=== PATIENT | female | born 1940 | race Caucasian/White ===

== ENCOUNTER 2021-08-24 08:14 | Outpatient (CLI) | payer MEDICARE | END 2021-08-24 08:15 | disposition home or self-care (01) | LOC: CSHWCC 08:14 | PROVIDERS: ATTEND Nurse Practitioner Family | DX: L98.499 Non-pressure chronic ulcer of skin of other sites with unspecified severity (principal) | CPT/HCPCS: 11042; 97139; G0463; 88304; 88305; 99203 ==

== ENCOUNTER 2022-04-10 11:57 | Inpatient (IN) | payer MEDICARE ==
[2022-04-10 13:13] LABS: #Monocytes 0.4 10x3/uL (0.0-1.1); #Neutrophils 3.7 10x3/uL (1.5-8.4); %Basophils 0.4 % (0.0-2.0); %Eosinophils 0.6 % (0.0-6.0); %Lymphocytes 23.7 % (18.0-47.0); %Monocytes 7.1 % (0.0-10.0); Hemoglobin 11.3 g/dL (12.0-15.5); Mean Corpuscular HGB CONC 30.9 g/dL (32.0-36.0); Mean Corpuscular Hemoglobin 31.7 pg (27.0-33.0); Mean Corpuscular Volume 102.8 fl (81.6-98.3); Mean Platelet Volume 10.9 fl (7.4-10.4); Platelet Count 161 10x3/uL (150-450); RBC Distribution Width 11.6 % (11.5-14.5); Red Blood Cell (RBC) Count 3.56 10x6/uL (3.90-5.03); White Blood Cell (WBC) Count 5.4 10x3/uL (3.5-10.5)
[2022-04-10 13:28] LABS: ALT (SGPT) 8 U/L (8-55); AST (SGOT) 15 U/L (5-34); Alkaline Phosphatase 82 U/L (40-110); BUN (Urea Nitrogen) 12 mg/dL (9.8-20.1); Bilirubin, Total 0.3 mg/dL (0.2-1.2); Calc. Creatinine Clearance 0 mL/min (70-130); Calcium 10.2 mg/dL (7.8-10.44); Estimated GFR 89; Globulin 2.7 g/dL (2.4-3.5); Glucose 141 mg/dL (83-110); Magnesium 1.9 mg/dL (1.6-2.6); Protein, Total 6.7 g/dL (5.8-8.1)
[2022-04-10 13:35] LABS: Anion Gap 15 mmol/L (10-20); Carbon Dioxide 38 mmol/L (23-31); Chloride 94 mmol/L (98-107); Potassium 4.5 mmol/L (3.5-5.1); Sodium 142 mmol/L (136-145)
[2022-04-10] MEDS ORDERED: HYDROcodone/Acetaminophen 5/325 mg Tablet PO PRN (16:09)
[2022-04-10 18:18] VITALS: BMI 24.3
[2022-04-10 22:01] LABS: Bilirubin Neg (Negative); Blood, Urine Negative (Negative); Clarity Clear (Clear); Glucose, Urine (Dipstick) Normal (Negative); Ketone, Urine Negative (Negative); Leukocyte Negative (Negative); Nitrite Negative (Negative); Protein, Urine (Dipstick) Negative (Neg-Trace)
[2022-04-10 22:07] LABS: Bacteria/HPF None Seen HPF (None Seen); RBC/HPF 0-3 HPF (0-3); Squamous Epithelial 0-3 HPF (0-3); WBC/HPF 0-3 HPF (0-3)
[2022-04-10] MEDS ORDERED: Zonisamide 100 MG CAP PO SCH (22:15)
[2022-04-11 04:43] LABS: #Eosinphils 0.1 10x3/uL (0.0-0.5); #Monocytes 0.7 10x3/uL (0.0-1.1); #Neutrophils 5.7 10x3/uL (1.5-8.4); %Basophils 0.2 % (0.0-2.0); %Eosinophils 0.9 % (0.0-6.0); %Lymphocytes 19.2 % (18.0-47.0); %Monocytes 9.1 % (0.0-10.0); %Neutrophils 70.4 % (40.0-75.0); Hemoglobin 10.4 g/dL (12.0-15.5); Mean Corpuscular HGB CONC 30.7 g/dL (32.0-36.0); Mean Corpuscular Hemoglobin 31.6 pg (27.0-33.0); Mean Platelet Volume 10.8 fl (7.4-10.4); Platelet Count 151 10x3/uL (150-450); RBC Distribution Width 11.6 % (11.5-14.5); Red Blood Cell (RBC) Count 3.29 10x6/uL (3.90-5.03); White Blood Cell (WBC) Count 8.1 10x3/uL (3.5-10.5)
[2022-04-11 05:14] LABS: Anion Gap 17 mmol/L (10-20); Carbon Dioxide 36 mmol/L (23-31); Chloride 93 mmol/L (98-107); Potassium 4.4 mmol/L (3.5-5.1); Sodium 142 mmol/L (136-145)
[2022-04-11 05:17] LABS: ALT (SGPT) Less than 6 U/L (8-55); AST (SGOT) 14 U/L (5-34); Albumin 3.6 g/dL (3.4-4.8); Alkaline Phosphatase 78 U/L (40-110); BUN (Urea Nitrogen) 10 mg/dL (9.8-20.1); Bilirubin, Total 0.6 mg/dL (0.2-1.2); Calc. Creatinine Clearance 69 mL/min (70-130); Calcium 9.5 mg/dL (7.8-10.44); Estimated GFR 90; Globulin 2.4 g/dL (2.4-3.5); Glucose 121 mg/dL (83-110)
[2022-04-11] MEDS ORDERED: Ipratropium Bromide 2.5 ml Neb NEB PRN (08:50)
[2022-04-11] MEDS ORDERED: Enoxaparin Sodium 30 MG/0.3 ML SYRINGE ONE (08:54)
[2022-04-11] MEDS ORDERED: FLU VACC QS2022-23(65YR UP)/PF 240 MCG/0.7 ML SYRINGE IM ONE (09:00)
[2022-04-11] MEDS: Ferrous Sulfate 325 MG TAB PO SCH (09:14)
[2022-04-11] MEDS: Potassium Chloride 20 MEQ TAB PO SCH (09:14)
[2022-04-11] MEDS: Aspirin Chewable 81 MG TAB PO SCH (09:14)
[2022-04-11] MEDS: Cholecalciferol 1,000 UNITS (25 MCG) TAB PO SCH (09:14)
[2022-04-11] MEDS: Enoxaparin Sodium 30 MG/0.3 ML SYRINGE SC SCH (09:15)
[2022-04-11] MEDS: Torsemide 20 MG TAB PO SCH (10:33)
[2022-04-11] MEDS ORDERED: Communication Order-Pharmacy FS SCH (13:30)
[2022-04-11] MEDS ORDERED: TETANUS, DIPHTHERIA TOX,ADULT (TDVAX) 0.5 ML VIAL IM ONE (13:30)
[2022-04-11] MEDS: Zonisamide 100 MG CAP PO SCH (20:20)
[2022-04-11] MEDS: Aspirin 81 mg Enteric Coated Tablet PO SCH (20:20)
[2022-04-11 23:08] LABS: Actual Bicarbonate (HCO3v) 47 mEq/L (22-28); Base Excess 17.7 mEq/L (-2.0 to +3.0); Calcium, Ionized (venous) 1.13 mmol/L (1.16-1.32); Chloride (VBG) 92 mmol/L (98-106); Critical Notified By: CP.PH; Hemoglobin (Hb) 11.2 g/dL (11.7-16.1); Potassium (VBG) 3.79 mmol/L (3.70-5.30); Puncture Site Other Site; pH (venous) 7.37 (7.32-7.43)
[2022-04-12] MEDS: Aspirin Chewable 81 MG TAB PO SCH (09:33)
[2022-04-12] MEDS: Cholecalciferol 1,000 UNITS (25 MCG) TAB PO SCH (09:34)
[2022-04-12] MEDS: Aspirin 81 mg Enteric Coated Tablet PO SCH ×2 (09:34→20:06)
[2022-04-12] MEDS: Ferrous Sulfate 325 MG TAB PO SCH (09:34)
[2022-04-12] MEDS: Enoxaparin Sodium 30 MG/0.3 ML SYRINGE SC SCH (09:35)
[2022-04-12] MEDS: Zonisamide 100 MG CAP PO SCH (20:10)
[2022-04-13] MEDS ORDERED: Enoxaparin Sodium 30 MG/0.3 ML SYRINGE ONE (08:29)
[2022-04-13] MEDS: Ferrous Sulfate 325 MG TAB PO SCH (08:32)
[2022-04-13] MEDS: Enoxaparin Sodium 30 MG/0.3 ML SYRINGE SC SCH (08:32)
[2022-04-13] MEDS: Potassium Chloride 20 MEQ TAB PO SCH (08:33)
[2022-04-13] MEDS: Aspirin 81 mg Enteric Coated Tablet PO SCH ×2 (08:33→21:26)
[2022-04-13] MEDS: Cholecalciferol 1,000 UNITS (25 MCG) TAB PO SCH (08:33)
[2022-04-13] MEDS: Torsemide 20 MG TAB PO SCH (08:33)
[2022-04-13] MEDS: Zonisamide 100 MG CAP PO SCH (21:26)
[2022-04-14] MEDS: Cholecalciferol 1,000 UNITS (25 MCG) TAB PO SCH (09:58)
[2022-04-14] MEDS: Aspirin 81 mg Enteric Coated Tablet PO SCH ×2 (09:58→20:34)
[2022-04-14] MEDS: Enoxaparin Sodium 30 MG/0.3 ML SYRINGE SC SCH (09:58)
[2022-04-14] MEDS: Ferrous Sulfate 325 MG TAB PO SCH (09:58)
[2022-04-14] MEDS: Zonisamide 100 MG CAP PO SCH (20:35)
[2022-04-15] MEDS: Enoxaparin Sodium 30 MG/0.3 ML SYRINGE SC SCH (09:18)
[2022-04-15] MEDS: Potassium Chloride 20 MEQ TAB PO SCH (09:19)
[2022-04-15] MEDS: Aspirin 81 mg Enteric Coated Tablet PO SCH (09:19)
[2022-04-15] MEDS: Ferrous Sulfate 325 MG TAB PO SCH (09:21)
[2022-04-15] MEDS: Cholecalciferol 1,000 UNITS (25 MCG) TAB PO SCH (09:21)
[2022-04-15] MEDS: Torsemide 20 MG TAB PO SCH (09:53)
[2022-04-15 16:24] VITALS: BP 114/54; TEMP 97.8
== END 2022-04-15 17:30 | disposition home or self-care (01) | DRG 563 ==
LOC: CSHERS 11:57 → CSHTELE 17:45 → INTOOBSV 17:45 → OBSVTOIN 04-11 08:49
PROVIDERS: ADMIT Internal Medicine; ATTEND Hospitalist
DX: S82.291A Other fracture of shaft of right tibia, initial encounter for closed fracture (principal); J96.11 Chronic respiratory failure with hypoxia; J96.12 Chronic respiratory failure with hypercapnia; S92.312A Displaced fracture of first metatarsal bone, left foot, initial encounter for closed fracture; S92.322A Displaced fracture of second metatarsal bone, left foot, initial encounter for closed fracture; S92.332A Displaced fracture of third metatarsal bone, left foot, initial encounter for closed fracture; S92.342A Displaced fracture of fourth metatarsal bone, left foot, initial encounter for closed fracture; I25.10 Atherosclerotic heart disease of native coronary artery without angina pectoris; I10 Essential (primary) hypertension; I48.91 Unspecified atrial fibrillation; J44.9 Chronic obstructive pulmonary disease, unspecified; W19.XXXA Unspecified fall, initial encounter; G40.909 Epilepsy, unspecified, not intractable, without status epilepticus; Z95.5 Presence of coronary angioplasty implant and graft; Z88.1 Allergy status to other antibiotic agents; Z88.8 Allergy status to other drugs, medicaments and biological substances; Z88.5 Allergy status to narcotic agent; Z79.82 Long term (current) use of aspirin; Z79.899 Other long term (current) drug therapy; Y92.002 Bathroom of unspecified non-institutional (private) residence as the place of occurrence of the external cause; Z99.81 Dependence on supplemental oxygen; Z20.822 Contact with and (suspected) exposure to COVID-19
CPT/HCPCS: 36415; 71045; 72220; 80053; 81001; 82805; 83735; 85025; 93005; 94760; G0378; J1650; U0003; U0005

== ENCOUNTER 2022-11-22 11:00 | Emergency (ER) | payer MEDICARE ==
[2022-11-22 12:10] LABS: #Eosinphils 0.1 10x3/uL (0.0-0.5); #Monocytes 0.5 10x3/uL (0.0-1.1); #Neutrophils 4.3 10x3/uL (1.5-8.4); %Basophils 0.5 % (0.0-2.0); %Eosinophils 1.1 % (0.0-6.0); %Monocytes 7.7 % (0.0-10.0); %Neutrophils 65.4 % (40.0-75.0); Hemoglobin 10.1 g/dL (12.0-15.5); Mean Corpuscular HGB CONC 29.2 g/dL (32.0-36.0); Mean Corpuscular Hemoglobin 30.6 pg (27.0-33.0); Mean Corpuscular Volume 104.8 fl (81.6-98.3); Mean Platelet Volume 11.1 fl (7.4-10.4); Platelet Count 162 10x3/uL (150-450); RBC Distribution Width 11.7 % (11.5-14.5); White Blood Cell (WBC) Count 6.6 10x3/uL (3.5-10.5)
[2022-11-22 12:20] LABS: ALT (SGPT) Less than 6 U/L (8-55); AST (SGOT) 13 U/L (5-34); Albumin 3.7 g/dL (3.4-4.8); Alkaline Phosphatase 81 U/L (40-110); BUN (Urea Nitrogen) 15 mg/dL (9.8-20.1); Bilirubin, Total 0.3 mg/dL (0.2-1.2); Calc. Creatinine Clearance 0 mL/min (70-130); Calcium 9.3 mg/dL (7.8-10.44); Estimated GFR 89; Globulin 2.3 g/dL (2.4-3.5); Glucose 115 mg/dL (83-110)
[2022-11-22 12:27] LABS: Anion Gap 15 mmol/L (10-20); Carbon Dioxide 39 mmol/L (23-31); Chloride 96 mmol/L (98-107); Potassium 4.1 mmol/L (3.5-5.1); Sodium 146 mmol/L (136-145)
[2022-11-22 12:41] LABS: Macrocytosis SLIGHT = 6-15 cells (100X) (0-5/hpf); Stomatocytes SLIGHT = 2-5 cells (100X) (0-1/hpf)
[2022-11-22 12:42] LABS: Hypochromia SLIGHT = 6-15 cells (100X) (0-5/hpf); Platelet Morphology Comment Appears Adequate
[2022-11-22] MEDS ORDERED: Sulfameth/Trimethoprim DS 800-160mg TAB ONE (17:29)
== END 2022-11-22 18:34 | disposition short-term general hospital (02) ==
LOC: CSHERS 11:00
DX: N30.00 Acute cystitis without hematuria (principal); R53.1 Weakness; I25.10 Atherosclerotic heart disease of native coronary artery without angina pectoris; I48.91 Unspecified atrial fibrillation; J44.9 Chronic obstructive pulmonary disease, unspecified; Z87.891 Personal history of nicotine dependence
CPT/HCPCS: 36415; 36416; 70450; 71045; 80053; 83605; 84484; 85025; 87040; 93005; 96361; 96365; J0744

== ENCOUNTER 2023-01-09 18:59 | Inpatient (IN) | payer MEDICARE ==
[2023-01-09 20:22] LABS: SARS-CoV-2 NAA Rapid Test Not Detected (NotDetected)
[2023-01-09 20:39] LABS: #Eosinphils 0.1 10x3/uL (0.0-0.5); #Monocytes 0.5 10x3/uL (0.0-1.1); #Neutrophils 2.9 10x3/uL (1.5-8.4); %Basophils 0.6 % (0.0-2.0); %Eosinophils 2.2 % (0.0-6.0); %Lymphocytes 32.5 % (18.0-47.0); %Monocytes 9.5 % (0.0-10.0); Mean Corpuscular HGB CONC 29.8 g/dL (32.0-36.0); Mean Corpuscular Hemoglobin 31.1 pg (27.0-33.0); Mean Corpuscular Volume 104.3 fl (81.6-98.3); Mean Platelet Volume 11.3 fl (7.4-10.4); Platelet Count 145 10x3/uL (150-450); Red Blood Cell (RBC) Count 3.22 10x6/uL (3.90-5.03); White Blood Cell (WBC) Count 5.4 10x3/uL (3.5-10.5)
[2023-01-09 20:47] LABS: Bilirubin Neg (Negative); Blood, Urine Negative (Negative); Clarity Clear (Clear); Glucose, Urine (Dipstick) Normal (Negative); Ketone, Urine Negative (Negative); Leukocyte 100 (Negative); Nitrite Negative (Negative); Protein, Urine (Dipstick) Negative (Neg-Trace); Urobilinogen Normal mg/dL (Less than 2)
[2023-01-09 20:49] LABS: ALT (SGPT) 7 U/L (8-55); AST (SGOT) 12 U/L (5-34); Albumin 3.5 g/dL (3.4-4.8); Alkaline Phosphatase 66 U/L (40-110); BUN (Urea Nitrogen) 11 mg/dL (9.8-20.1); Bilirubin, Total 0.2 mg/dL (0.2-1.2); Calc. Creatinine Clearance 0 mL/min (70-130); Calcium 9.3 mg/dL (7.8-10.44); Estimated GFR 86; Globulin 2.3 g/dL (2.4-3.5); Glucose 153 mg/dL (83-110); Protein, Total 5.8 g/dL (5.8-8.1)
[2023-01-09 20:54] LABS: Bacteria/HPF None Seen HPF (None Seen); CAUTI Indications for Culture Alt mental st,lethar; RBC/HPF 0-3 HPF (0-3); Squamous Epithelial 0-3 HPF (0-3)
[2023-01-09 20:55] LABS: Urine Culture Reflex No No
[2023-01-09 21:01] LABS: Anion Gap 16 mmol/L (10-20); Carbon Dioxide 35 mmol/L (23-31); Chloride 97 mmol/L (98-107); Potassium 3.6 mmol/L (3.5-5.1); Sodium 144 mmol/L (136-145)
[2023-01-09 22:15] LABS: Actual Bicarbonate (HCO3v) 40.6 mEq/L (22-28); Calcium, Ionized (venous) 1.17 mmol/L (1.16-1.32); Chloride (VBG) 96 mmol/L (98-106); Critical Notified By: CP.PH; Hematocrit-VBG 32 % (36.0-47.0); Potassium (VBG) 3.53 mmol/L (3.70-5.30); Puncture Site Other Site; RapidComm Collect By LAB.YY; Sodium 140.2 mmol/L (133-146); pH (venous) 7.278 (7.32-7.43)
[2023-01-09] MEDS ORDERED: Ipratropium/Albuterol 3 ML NEB ONE (22:48)
[2023-01-10] MEDS ORDERED: Ipratropium/Albuterol 3 ML NEB NEB PRN (00:52)
[2023-01-10] MEDS ORDERED: predniSONE 20 MG TAB PO SCH (01:00)
[2023-01-10] MEDS ORDERED: Ipratropium/Albuterol 3 ML NEB ONE (01:47)
[2023-01-10] MEDS: Ipratropium/Albuterol 3 ML NEB NEB SCH ×4 (01:50→20:14)
[2023-01-10 04:16] LABS: #Eosinphils 0.1 10x3/uL (0.0-0.5); #Monocytes 0.5 10x3/uL (0.0-1.1); #Neutrophils 2.9 10x3/uL (1.5-8.4); %Basophils 0.5 % (0.0-2.0); %Eosinophils 1.8 % (0.0-6.0); %Lymphocytes 38.1 % (18.0-47.0); %Monocytes 8.8 % (0.0-10.0); %Neutrophils 50.6 % (40.0-75.0); Mean Corpuscular HGB CONC 29.4 g/dL (32.0-36.0); Mean Corpuscular Volume 105.5 fl (81.6-98.3); Mean Platelet Volume 11.9 fl (7.4-10.4); Platelet Count 116 10x3/uL (150-450); White Blood Cell (WBC) Count 5.7 10x3/uL (3.5-10.5)
[2023-01-10 04:33] LABS: Hypochromia SLIGHT = 6-15 cells (100X) (0-5/hpf); Macrocytosis SLIGHT = 6-15 cells (100X) (0-5/hpf); Platelet Adequacy Comment Appears Decreased
[2023-01-10 04:34] LABS: ALT (SGPT) 8 U/L (8-55); AST (SGOT) 14 U/L (5-34); Albumin 3.2 g/dL (3.4-4.8); Alkaline Phosphatase 63 U/L (40-110); BUN (Urea Nitrogen) 11 mg/dL (9.8-20.1); Bilirubin, Total 0.3 mg/dL (0.2-1.2); Calc. Creatinine Clearance 0 mL/min (70-130); Calcium 9.1 mg/dL (7.8-10.44); Estimated GFR 87; Globulin 2.2 g/dL (2.4-3.5); Glucose 101 mg/dL (83-110); Protein, Total 5.4 g/dL (5.8-8.1)
[2023-01-10 04:41] LABS: Anion Gap 17 mmol/L (10-20); Carbon Dioxide 34 mmol/L (23-31); Chloride 98 mmol/L (98-107); Potassium 3.3 mmol/L (3.5-5.1); Sodium 146 mmol/L (136-145)
[2023-01-10 06:00] LABS: Actual Bicarbonate (HCO3a) 43.5 mEq/L (22-28); CO2 Tension 81.4 mmHg (35.0-45.0); Carboxyhemoglobin (COHb) 0.1 gm% (0.0-3.0); Critical Notified By: CP.PH; Hematocrit-ABG 30 % (36.0-47.0); Hemoglobin (Hb) 10.2 g/dL (12.0-16.0); O2 Tension (PaO2), arterial 73.1 mmHg (> 60.0); Potassium - ABG Lab 3.26 mmol/L (3.70-5.30); Puncture Site RRA; RapidComm Collect By CP.PH; pH, Arterial 7.346 (7.35-7.45)
[2023-01-10] MEDS ORDERED: Magnesium 2 GM/50 ML BAG (IN WATER) ONE (06:39)
[2023-01-10] MEDS ORDERED: Magnesium 2 GM/50 ML(in water) 2 GM in Premix Bag 1 BAG IVPB SCH (06:45)
[2023-01-10 06:48] LABS: Magnesium 1.6 mg/dL (1.6-2.6)
[2023-01-10] MEDS ORDERED: Electrolyte Replacement Protocol 1 EACH FS SCH (08:45)
[2023-01-10] MEDS ORDERED: Clopidogrel Bisulfate 75 MG TAB ONE (09:03)
[2023-01-10] MEDS ORDERED: Aspirin Chewable 81 MG TAB ONE (09:03)
[2023-01-10] MEDS ORDERED: predniSONE 20 MG TAB ONE (09:03)
[2023-01-10] MEDS ORDERED: Sucralfate 1 GM/10 ML UDCUP ONE (09:04)
[2023-01-10] MEDS: Clopidogrel Bisulfate 75 MG TAB PO SCH (09:15)
[2023-01-10] MEDS: predniSONE 20 MG TAB PO SCH (09:15)
[2023-01-10] MEDS: Sucralfate 1 GM TAB PO SCH ×4 (09:15→22:34)
[2023-01-10] MEDS: Aspirin Chewable 81 MG TAB PO SCH (09:15)
[2023-01-10] MEDS ORDERED: Potassium Chloride 20 MEQ TAB PO SCH ×2 (09:45)
[2023-01-10 10:01] LABS: Actual Bicarbonate (HCO3a) 41.3 mEq/L (22-28); Base Excess (BEa) 14.1 mEq/L (-2.0 to +3.0); CO2 Tension 66.6 mmHg (35.0-45.0); Calcium, Ionized (arterial) 1.16 mmol/L (1.12-1.30); Carboxyhemoglobin (COHb) 0.4 gm% (0.0-3.0); Hematocrit-ABG 33 % (36.0-47.0); Hemoglobin (Hb) 11.1 g/dL (12.0-16.0); O2 Tension (PaO2), arterial 131.7 mmHg (> 60.0); Potassium - ABG Lab 3.44 mmol/L (3.70-5.30); Puncture Site LRA
[2023-01-10 14:23] VITALS: BMI 25.3
[2023-01-10 15:15] LABS: Potassium 4.1 mmol/L (3.5-5.1)
[2023-01-10] MEDS ORDERED: Zonisamide 100 MG CAP PO SCH (21:00)
[2023-01-11] MEDS: Ipratropium/Albuterol 3 ML NEB NEB SCH ×2 (01:35→07:43)
[2023-01-11 05:42] LABS: Phosphorus 2.7 mg/dL (2.3-4.7)
[2023-01-11 05:45] LABS: BUN (Urea Nitrogen) 12 mg/dL (9.8-20.1); Calc. Creatinine Clearance 63 mL/min (70-130); Estimated GFR 87; Glucose 111 mg/dL (83-110); Magnesium 1.9 mg/dL (1.6-2.6)
[2023-01-11 05:53] LABS: Anion Gap 20 mmol/L (10-20); Carbon Dioxide 31 mmol/L (23-31); Chloride 96 mmol/L (98-107); Potassium 3.4 mmol/L (3.5-5.1); Sodium 144 mmol/L (136-145)
[2023-01-11] MEDS: predniSONE 20 MG TAB PO SCH (08:42)
[2023-01-11] MEDS: Aspirin Chewable 81 MG TAB PO SCH (08:42)
[2023-01-11] MEDS: Clopidogrel Bisulfate 75 MG TAB PO SCH (08:42)
[2023-01-11] MEDS: Sucralfate 1 GM TAB PO SCH (08:43)
[2023-01-11] MEDS ORDERED: Ferrous Sulfate 325 MG TAB PO SCH (09:00)
[2023-01-11] MEDS ORDERED: Potassium Chloride 20 MEQ TAB PO SCH ×2 (09:00)
[2023-01-11] MEDS ORDERED: Magnesium 2 GM/50 ML(in water) 2 GM in Premix Bag 1 BAG IVPB SCH (09:00)
[2023-01-11] MEDS ORDERED: Torsemide 20 MG TAB PO SCH (09:00)
[2023-01-11] MEDS ORDERED: Cefdinir 300 MG CAP PO SCH (09:15)
[2023-01-11 12:30] VITALS: BP 163/67; TEMP 98.6
== END 2023-01-11 15:00 | disposition home or self-care (01) | DRG 189 ==
LOC: CSHERS 18:59 → SUATTDRO 18:59 → CSHERHOLD 01-10 00:53 → CSHTELE 01-10 12:36
PROVIDERS: ADMIT Family Medicine; ATTEND Family Medicine
PROC: 4A133R1 Monitoring of Arterial Saturation, Peripheral, Percutaneous Approach (ICD-10-PCS; principal; 2023-01-09)
PROC: 5A09357 Assistance with Respiratory Ventilation, Less than 24 Consecutive Hours, Continuous Positive Airway Pressure (ICD-10-PCS; 2023-01-10)
DX: J96.21 Acute and chronic respiratory failure with hypoxia (principal); G93.41 Metabolic encephalopathy; J44.1 Chronic obstructive pulmonary disease with (acute) exacerbation; J96.22 Acute and chronic respiratory failure with hypercapnia; R00.2 Palpitations; K21.9 Gastro-esophageal reflux disease without esophagitis; I10 Essential (primary) hypertension; R56.9 Unspecified convulsions; Z20.822 Contact with and (suspected) exposure to COVID-19; I25.10 Atherosclerotic heart disease of native coronary artery without angina pectoris; K92.9 Disease of digestive system, unspecified; G98.8 Other disorders of nervous system; R25.1 Tremor, unspecified; E87.6 Hypokalemia; Z79.2 Long term (current) use of antibiotics; Z88.5 Allergy status to narcotic agent; Z88.8 Allergy status to other drugs, medicaments and biological substances; Z79.82 Long term (current) use of aspirin; Z79.899 Other long term (current) drug therapy; Z95.818 Presence of other cardiac implants and grafts; Z87.891 Personal history of nicotine dependence; Z98.890 Other specified postprocedural states; Z90.49 Acquired absence of other specified parts of digestive tract; Z90.711 Acquired absence of uterus with remaining cervical stump; I48.0 Paroxysmal atrial fibrillation
CPT/HCPCS: 36415; 36600; 71045; 80048; 80053; 81001; 82805; 83735; 83880; 84100; 85025; 93005; 94640; 94660; 94760; 94762; J1650; J3475; J7512; J7620

== ENCOUNTER 2023-01-27 15:08 | Inpatient (IN) | payer MEDICARE ==
[2023-01-27 15:41] LABS: Actual Bicarbonate (HCO3v) 35.8 mEq/L (22-28); Base Excess 11.6 mEq/L (-2 - +2); Calcium, Ionized (venous) 0.94 mmol/L (1.16-1.32); Chloride (VBG) 98 mmol/L (98-106); Hematocrit-VBG 33 % (36.0-47.0); Hemoglobin (Hb) 11.2 g/dL (11.7-16.1); Potassium (VBG) 3.47 mmol/L (3.70-5.30); Puncture Site Other Site; RapidComm Collect By Lab Tech; Sodium 139.2 mmol/L (133-146); pH (venous) 7.516 (7.32-7.43)
[2023-01-27 15:50] LABS: #Eosinphils 0.1 10x3/uL (0.0-0.5); #Monocytes 0.9 10x3/uL (0.0-1.1); #Neutrophils 7.2 10x3/uL (1.5-8.4); %Basophils 0.3 % (0.0-2.0); %Eosinophils 0.8 % (0.0-6.0); %Lymphocytes 16.5 % (18.0-47.0); %Monocytes 9.5 % (0.0-10.0); %Neutrophils 72.5 % (40.0-75.0); Hemoglobin 10.1 g/dL (12.0-15.5); Mean Corpuscular Hemoglobin 31.4 pg (27.0-33.0); Mean Corpuscular Volume 104.7 fl (81.6-98.3); Mean Platelet Volume 11.4 fl (7.4-10.4); Platelet Count 170 10x3/uL (150-450); RBC Distribution Width 12.1 % (11.5-14.5); Red Blood Cell (RBC) Count 3.22 10x6/uL (3.90-5.03); White Blood Cell (WBC) Count 9.9 10x3/uL (3.5-10.5)
[2023-01-27 16:01] LABS: ALT (SGPT) 10 U/L (8-55); AST (SGOT) 10 U/L (5-34); Albumin 3.5 g/dL (3.4-4.8); Alkaline Phosphatase 76 U/L (40-110); BUN (Urea Nitrogen) 12 mg/dL (9.8-20.1); Bilirubin, Total 0.4 mg/dL (0.2-1.2); Calc. Creatinine Clearance 0 mL/min (70-130); Calcium 8.9 mg/dL (7.8-10.44); Estimated GFR 80; Globulin 2.6 g/dL (2.4-3.5); Glucose 136 mg/dL (83-110); Protein, Total 6.1 g/dL (5.8-8.1)
[2023-01-27 16:08] LABS: Anion Gap 15 mmol/L (10-20); Carbon Dioxide 37 mmol/L (23-31); Chloride 96 mmol/L (98-107); Potassium 3.5 mmol/L (3.5-5.1); Sodium 144 mmol/L (136-145)
[2023-01-27 16:29] LABS: Actual Bicarbonate (HCO3a) 39.6 mEq/L (22-28); Base Excess (BEa) 10.5 mEq/L (-2.0 to +3.0); CO2 Tension 82.4 mmHg (35.0-45.0); Calcium, Ionized (arterial) 1.17 mmol/L (1.12-1.30); Carboxyhemoglobin (COHb) 0.5 gm% (0.0-3.0); Hematocrit-ABG 33 % (36.0-47.0); Hemoglobin (Hb) 11.1 g/dL (12.0-16.0); O2 Tension (PaO2), arterial 58.2 mmHg (> 60.0); Potassium - ABG Lab 3.77 mmol/L (3.70-5.30); Puncture Site RRA
[2023-01-27] MEDS ORDERED: Ipratropium/Albuterol 3 ML NEB ONE (17:09)
[2023-01-27] MEDS ORDERED: methylPREDNISolone Sod Succ/PF 125 MG/2 ML VIAL ONE (17:13)
[2023-01-27] MEDS ORDERED: Ipratropium/Albuterol 3 ML NEB NEB PRN (17:46)
[2023-01-27] MEDS ORDERED: Calcium Carbonate 500 MG ChewTAB PO PRN (17:48)
[2023-01-27 19:35] LABS: Troponin I 0.023 ng/mL (< 0.028)
[2023-01-27] MEDS ORDERED: predniSONE 20 MG TAB PO SCH (20:30)
[2023-01-27 21:14] VITALS: BMI 25.8
[2023-01-27] MEDS: Zonisamide 100 MG CAP PO SCH (21:40)
[2023-01-27] MEDS: Sucralfate 1 GM TAB PO SCH (21:40)
[2023-01-27 23:11] LABS: Troponin I 0.021 ng/mL (< 0.028)
[2023-01-27] MEDS: Ipratropium/Albuterol 3 ML NEB NEB SCH (23:29)
[2023-01-28] MEDS: Ipratropium/Albuterol 3 ML NEB NEB SCH ×3 (04:13→11:55)
[2023-01-28 04:16] LABS: Actual Bicarbonate (HCO3a) 40.5 mEq/L (22-28); Base Excess (BEa) 11.2 mEq/L (-2.0 to +3.0); CO2 Tension 85.6 mmHg (35.0-45.0); Calcium, Ionized (arterial) 1.23 mmol/L (1.12-1.30); Hematocrit-ABG 32 % (36.0-47.0); Hemoglobin (Hb) 10.9 g/dL (12.0-16.0); O2 Tension (PaO2), arterial 80.2 mmHg (> 60.0); Potassium - ABG Lab 3.57 mmol/L (3.70-5.30); Puncture Site LRA; pH, Arterial 7.293 (7.35-7.45)
[2023-01-28 04:53] LABS: #Monocytes 0.1 10x3/uL (0.0-1.1); #Neutrophils 8.8 10x3/uL (1.5-8.4); %Basophils 0.1 % (0.0-2.0); %Monocytes 0.5 % (0.0-10.0); %Neutrophils 94.1 % (40.0-75.0); Hemoglobin 10.7 g/dL (12.0-15.5); Mean Corpuscular HGB CONC 29.6 g/dL (32.0-36.0); Mean Corpuscular Hemoglobin 31.2 pg (27.0-33.0); Mean Corpuscular Volume 105.5 fl (81.6-98.3); Mean Platelet Volume 11.9 fl (7.4-10.4); Platelet Count 171 10x3/uL (150-450); RBC Distribution Width 11.9 % (11.5-14.5); Red Blood Cell (RBC) Count 3.43 10x6/uL (3.90-5.03); White Blood Cell (WBC) Count 9.4 10x3/uL (3.5-10.5)
[2023-01-28 05:03] LABS: Anion Gap 17 mmol/L (10-20); BUN (Urea Nitrogen) 14 mg/dL (9.8-20.1); Calc. Creatinine Clearance 58 mL/min (70-130); Calcium 9.6 mg/dL (7.8-10.44); Carbon Dioxide 35 mmol/L (23-31); Chloride 95 mmol/L (98-107); Estimated GFR 80; Glucose 254 mg/dL (83-110); Potassium 3.9 mmol/L (3.5-5.1); Sodium 143 mmol/L (136-145)
[2023-01-28 05:13] LABS: Platelet Adequacy Comment Appears Adequate
[2023-01-28 05:15] LABS: Hypochromia SLIGHT = 6-15 cells (100X) (0-5/hpf); Macrocytosis SLIGHT = 6-15 cells (100X) (0-5/hpf)
[2023-01-28] MEDS ORDERED: predniSONE 20 MG TAB PO SCH (08:00)
[2023-01-28] MEDS: Sucralfate 1 GM TAB PO SCH ×2 (08:22→13:17)
[2023-01-28] MEDS: Cholecalciferol 1,000 UNITS (25 MCG) TAB PO SCH ×2 (08:23→08:33)
[2023-01-28] MEDS: Zonisamide 100 MG CAP PO SCH (08:25)
[2023-01-28] MEDS ORDERED: Clopidogrel Bisulfate 75 MG TAB PO SCH (09:00)
[2023-01-28] MEDS ORDERED: Aspirin Chewable 81 MG TAB PO SCH (09:00)
[2023-01-28] MEDS ORDERED: Multivitamin W/ Minerals 1 TAB PO SCH (09:00)
[2023-01-28 09:14] LABS: Actual Bicarbonate (HCO3a) 31.1 mEq/L (22-28); Base Excess (BEa) 4.6 mEq/L (-2.0 to +3.0); CO2 Tension 55.4 mmHg (35.0-45.0); Carboxyhemoglobin (COHb) 0.2 gm% (0.0-3.0); Hematocrit-ABG 34 % (36.0-47.0); Hemoglobin (Hb) 11.7 g/dL (12.0-16.0); O2 Tension (PaO2), arterial 87.4 mmHg (> 60.0); Potassium - ABG Lab 3.38 mmol/L (3.70-5.30); Puncture Site RRA; pH, Arterial 7.367 (7.35-7.45)
[2023-01-28 13:07] VITALS: BP 116/59; TEMP 98
[2023-01-30] MEDS ORDERED: Torsemide 20 MG TAB PO SCH (09:00)
[2023-01-30] MEDS ORDERED: Ferrous Sulfate 325 MG TAB PO SCH (09:00)
== END 2023-01-28 14:30 | disposition home or self-care (01) | DRG 189 ==
LOC: CSHERS 15:08 → SUATTDRO 15:08 → CSHTELE 21:08
PROVIDERS: ADMIT Student in an Organized Health Care Education/Training Program; ATTEND Internal Medicine
PROC: 4A033R1 Measurement of Arterial Saturation, Peripheral, Percutaneous Approach (ICD-10-PCS; principal; 2023-01-27)
DX: J96.02 Acute respiratory failure with hypercapnia (principal); G93.41 Metabolic encephalopathy; E87.29 Other acidosis; E87.3 Alkalosis; J44.1 Chronic obstructive pulmonary disease with (acute) exacerbation; K21.9 Gastro-esophageal reflux disease without esophagitis; T42.4X5A Adverse effect of benzodiazepines, initial encounter; I10 Essential (primary) hypertension; I25.10 Atherosclerotic heart disease of native coronary artery without angina pectoris; I48.91 Unspecified atrial fibrillation; G40.909 Epilepsy, unspecified, not intractable, without status epilepticus; Z98.890 Other specified postprocedural states; Z90.49 Acquired absence of other specified parts of digestive tract; Z90.710 Acquired absence of both cervix and uterus; Z95.5 Presence of coronary angioplasty implant and graft; Z87.891 Personal history of nicotine dependence; Z88.1 Allergy status to other antibiotic agents; Z88.8 Allergy status to other drugs, medicaments and biological substances; Z79.82 Long term (current) use of aspirin; Z79.899 Other long term (current) drug therapy; Z79.51 Long term (current) use of inhaled steroids
CPT/HCPCS: 36415; 36600; 71045; 80048; 80053; 82805; 83880; 84484; 85025; 93005; 94640; 94760; 94762; 96374; J1650; J2930; J7512; J7620